=== PATIENT | male | born 1990 | race Caucasian/White ===

== ENCOUNTER 2025-01-02 17:23 | Emergency (ER) | payer SELFPAY ==
[2025-01-02] MEDS: Tetracaine HCl/PF 0.5% 4 ML Bottle EYERT ONE (20:01)
[2025-01-02] MEDS: Fluorescein 1 MG Ophth Strip EYERT ONE (20:01)
== END 2025-01-02 21:04 | disposition left against medical advice (07) ==
LOC: MW.ED 17:23
DX: S05.01XA Injury of conjunctiva and corneal abrasion without foreign body, right eye, initial encounter (principal); X58.XXXA Exposure to other specified factors, initial encounter
CPT/HCPCS: 99282; 99283; J3490